=== PATIENT | male | born 1995 | race Two or more races ===

== ENCOUNTER 2022-12-12 12:54 | Emergency (ER) | payer SELFPAY ==
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
[2022-12-12 13:08] VITALS: BP 130/78; PULSE 74; O2SAT 99
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
[2022-12-12 13:12] VITALS: BP 145/71; PULSE 82; RESP 16; TEMP 37.6; O2SAT 97
[2022-12-12 13:13] VITALS: BMI 22.7
== END 2022-12-12 15:38 | disposition home or self-care (01) ==
PROVIDERS: Emergency Provider Emergency Medicine
DX: S13.4XXA Sprain of ligaments of cervical spine, initial encounter (principal); V47.6XXA Car passenger injured in collision with fixed or stationary object in traffic accident, initial encounter; Y93.89 Activity, other specified; Y92.411 Interstate highway as the place of occurrence of the external cause; Y99.9 Unspecified external cause status
CPT/HCPCS: 72125; 99283; 99284